=== PATIENT | female | born 1945 | race Caucasian/White ===

== ENCOUNTER 2023-04-16 04:12 | Day surgery (SDC) | payer OTHER, BC ==
[2023-04-15 09:44] VITALS: BMI 35.4
[2023-04-16] MEDS ORDERED: BUPIVACAINE HCL/PF 0.5% (5MG/ML) 10 ML VIAL ONE (07:30)
[2023-04-16] MEDS ORDERED: LIDOCAINE HCL 1%, 10 MG/ML (20ML VIAL) ONE (07:30)
[2023-04-16] MEDS ORDERED: MIDAZOLAM HCL 2 MG/2 ML SINGLE DOSE VIAL ONE (07:44)
[2023-04-16] MEDS ORDERED: PROPOFOL 20 ML ONE (07:44)
[2023-04-16] MEDS ORDERED: SUCCINYLCHOLINE CHLORIDE 200 MG/10 ML SYRINGE ONE (07:44)
[2023-04-16] MEDS ORDERED: LIDOCAINE HCL 1%, 10 MG/ML (20ML VIAL) INF ONE (07:49)
[2023-04-16] MEDS ORDERED: BUPIVACAINE HCL/PF 0.5% (5 MG/ML) 30 ML VIAL IJ ONE ×2 (07:50)
[2023-04-16] MEDS ORDERED: GENTAMICIN SO4 80 MG/2 ML VIAL ONE (08:01)
[2023-04-16] MEDS ORDERED: ceFAZolin SODIUM 1 GM VIAL ONE (08:14)
[2023-04-16] MEDS ORDERED: ONDANSETRON 4 MG/2 ML VIAL ONE (08:14)
[2023-04-16] MEDS ORDERED: DEXAMETHASONE SOD PHOSPHATE 4 MG/1 ML VIAL NR ONE (08:15)
[2023-04-16 08:45] VITALS: BP 125/62; PULSE 65; RESP 16; TEMP 96.9
== END 2023-04-16 10:20 | disposition home or self-care (01) ==
LOC: JASU-SURG 04:12
PROVIDERS: ATTEND Podiatrist Foot Surgery
PROC: 0SRP0JZ Replacement of Right Toe Phalangeal Joint with Synthetic Substitute, Open Approach (ICD-10-PCS; principal; 2023-04-16 07:30)
DX: M20.41 Other hammer toe(s) (acquired), right foot (principal)
CPT/HCPCS: 73630-TC-RT-FY; 82962; 88305-TC; 88311-TC